=== PATIENT | male | born 1965 | race Caucasian/White ===

== ENCOUNTER 2022-07-08 04:19 | Day surgery (SDC) | payer BC ==
[2022-07-07 10:25] VITALS: BMI 23.8
[2022-07-08 11:18] VITALS: BP 115/77; PULSE 59; RESP 18; TEMP 98.4
== END 2022-07-08 12:45 | disposition home or self-care (01) ==
LOC: JASU-SURG 04:19
PROVIDERS: ATTEND Urology
DX: Z53.8 Procedure and treatment not carried out for other reasons (principal)
CPT/HCPCS: 36415; 84132